=== PATIENT | male | born 1960 | race Caucasian/White ===

== ENCOUNTER 2017-04-07 11:25 | Emergency (ER) | payer BC ==
[2017-04-07 11:41] VITALS: BP 120/77
--- NOTE | 2017-04-07 11:42 | UC ---
Back Pain HPI - HPI Summary HPI Summary: sits alot for work, always has low back pain, tried to life something heavy has right sided SI joint pain. - History of Current Complaint Stated Complaint: BACK PAIN Time Seen by Provider: 04/07/17 11:37 Hx Obtained From: Patient Onset/Duration: Sudden Onset, Lasting Days Timing: Lasting Days Severity Initially: Moderate Severity Currently: Moderate Character: Dull, Spasmodic, Stiffness Aggravating Factor(s): Movement Alleviating Factor(s): Nothing - Allergies/Home Medications Allergies/Adverse Reactions: Allergies Allergy/AdvReac Type Severity Reaction Status Date / Time No Known Allergies Allergy Verified 04/07/17 11:33 Home Medications: Home Medications Aspirin Low Dose CHEW TAB* [Aspirin Low Dose TAB*] 81 mg PO DAILY 04/07/17 [ History Confirmed 04/07/17] Back And Body, Pain Med, ?Name 3 PRN 04/07/17 [History] Lisinopril/HCTZ (NF) [Zestoretic (NF)] 1 tab PO DAILY 04/07/17 [ History Confirmed 04/07/17] PMH/Surg Hx/FS Hx/Imm Hx Previously Healthy: Yes - Surgical History Surgical History: Yes Surgery Procedure, Year, and Place: TESTICLE REMOVED. CHOLECYSTECTOMY. APPY. vasectomy - Family History Known Family History: Positive: Hypertension - Social History Alcohol Use: Other Substance Use Type: None Smoking Status (MU): Never Smoked Tobacco Review of Systems Constitutional: Negative Skin: Negative Eyes: Negative ENT: Negative Respiratory: Negative Cardiovascular: Negative Gastrointestinal: Negative Genitourinary: Negative Motor: Negative Neurovascular: Negative Musculoskeletal: Arthralgia, Decreased ROM, Myalgia Neurological: Negative Psychological: Negative Is Patient Immunocompromised?: No All Other Systems Reviewed And Are Negative: Yes Physical Exam Triage Information Reviewed: Yes Appearance: Well-Appearing, Well-Nourished, Pain Distress Vital Signs Reviewed: Yes Eye Exam: Normal ENT Exam: Normal Dental Exam: Normal Neck exam: Normal Respiratory Exam: Normal Cardiovascular Exam: Normal Abdominal Exam: Normal Bowel Sounds: Positive: Present Musculoskeletal: Positive: Strength Intact, ROM Limited @ - in flex and ext of lumbar spine Neurological Exam: Normal Neurological: Positive: Alert, Muscle Tone Normal Psychological Exam: Normal Skin Exam: Normal Back Pain Course/Dx - Course Course Of Treatment: hx obtained, exam performed ,meds reviewed, treated for low back spasm and pain - Differential Dx/Diagnosis Differential Diagnosis/HQI/PQRI: Herniated Disc, Strain, Sprain Provider Diagnoses: lumbar spasm. sacroillitis Discharge - Discharge Plan Condition: Stable Disposition: HOME Prescriptions: Cyclobenzaprine TAB* [Flexeril 10 MG TAB*] 10 mg PO BID #14 tab Patient Education Materials: Muscle Strain (ED) Referrals: Alex Prasad MD [Primary Care Provider] - Additional Instructions: 1. Use the Flexeril as prescribed. 2. FOr pain relief use the combination of Ibufprofen 400 mg and tylenol 500- 1000 mg every hours for pain managment 3. Heat the back and stretch multiple times a day to help relieve the low back tension. 4. FOllow up as needed.
== END 2017-04-07 11:50 | disposition home or self-care (01) ==
LOC: UCCORT 11:25
DX: M62.830 Muscle spasm of back (principal); M46.1 Sacroiliitis, not elsewhere classified; Z79.82 Long term (current) use of aspirin
CPT/HCPCS: 99212; G0463

== ENCOUNTER 2017-06-29 18:55 | Emergency (ER) | payer BC ==
[2017-06-29 20:21] VITALS: BP 129/77
[2017-06-29] MEDS ORDERED: Fluorescein Sodium TOPICAL* 1 MG TEST OPHTHALMIC ONE (23:19)
[2017-06-29] MEDS ORDERED: Fluorescein Sod TOPICAL 0.6* 0.6 MG TEST OPHTHALMIC ONE (23:21)
[2017-06-29] MEDS ORDERED: Polymyx/Trimethoprim OPTH* 10 ML BTL LEFT EYE ONE (23:31)
--- NOTE | 2017-06-29 23:43 | UC ---
Eye Complaint HPI - HPI Summary HPI Summary: 57 yo male with FB sensation left lower lid x 2 days eye red and tearing no photphobia no pain is irritated he has made multiple attempt to flush eye and had been everting his lower lid and rubbing it with a tissue - History of Current Complaint Chief Complaint: UCEye Stated Complaint: L EYE COMPLAINT Time Seen by Provider: 06/29/17 23:02 Hx Obtained From: Patient Onset/Duration: Gradual Onset, Lasting Days Timing: Constant Severity Initially: Mild Severity Currently: Moderate Pain Intensity: 6 Pain Scale Used: 0-10 Numeric Location of Injury: Eye Lid (lower) Character: Foreign Body Sensation Aggravating Factor(s): Nothing Alleviating Factor(s): Nothing Associated Signs And Symptoms: Positive: Drainage (Clear) Eyes: 1 - (+) flourescein staining defect - Allergies/Home Medications Allergies/Adverse Reactions: Allergies Allergy/AdvReac Type Severity Reaction Status Date / Time No Known Allergies Allergy Verified 06/29/17 20:10 PMH/Surg Hx/FS Hx/Imm Hx Previously Healthy: Yes Cardiovascular History: Hypertension - Surgical History Surgical History: Yes Surgery Procedure, Year, and Place: TESTICLE REMOVED. CHOLECYSTECTOMY. APPY. vasectomy - Family History Known Family History: Positive: Hypertension - Social History Alcohol Use: Rare Substance Use Type: None Smoking Status (MU): Never Smoked Tobacco Review of Systems Constitutional: Negative Skin: Negative Eyes: Eye Redness ENT: Negative Respiratory: Negative Cardiovascular: Negative Gastrointestinal: Negative Genitourinary: Negative Motor: Negative Neurovascular: Negative Musculoskeletal: Negative Neurological: Negative Psychological: Negative Is Patient Immunocompromised?: No All Other Systems Reviewed And Are Negative: Yes Physical Exam Triage Information Reviewed: Yes Appearance: Well-Appearing, No Pain Distress, Well-Nourished Vital Signs: Initial Vital Signs Temp 98.4 F 06/29/17 20:11 Pulse 80 06/29/17 20:11 Resp 16 06/29/17 20:11 BP 129/77 06/29/17 20:11 Pulse Ox 99 06/29/17 20:11 Vital Signs Reviewed: Yes Eyes: Positive: Conjunctiva Inflamed - Left ENT: Positive: Hearing grossly normal. Negative: Nasal congestion, Nasal drainage, Trismus, Muffled voice, Hoarse voice Neck: Positive: Supple Respiratory: Positive: No respiratory distress, No accessory muscle use Cardiovascular: Positive: RRR Musculoskeletal: Positive: ROM Intact, No Edema Neurological: Positive: Alert Psychological Exam: Normal Skin Exam: Normal Eye Complaint Course/Dx - Differential Dx/Diagnosis Provider Diagnoses: left eye pain. scleral abrasion. no fb noted Discharge - Discharge Plan Condition: Stable Disposition: HOME Patient Education Materials: Eye Pain (ED) Referrals: Lee Lamas MD [Medical Doctor] - 2 Days (if not better) Rubi Duncan MD [Medical Doctor] - 2 Days Additional Instructions: I see a small abrasion on the white of your left eye under your lower lid I saw no foreign body if not better by Tuesday AM I suggest you see an eye doctor tylenol or advil for pain recheck for new or worsening symptoms use prescription drops as directed I also suggest you use ZADITOR EYE DROPS (OTC)
== END 2017-06-29 23:51 | disposition home or self-care (01) ==
LOC: UCCORT 18:55
DX: H57.12 Ocular pain, left eye (principal); S05.8X2A Other injuries of left eye and orbit, initial encounter; X58.XXXA Exposure to other specified factors, initial encounter; Y93.9 Activity, unspecified; Y92.9 Unspecified place or not applicable
CPT/HCPCS: 99213; A9270-GY; G0463

== ENCOUNTER 2018-04-05 07:17 | Emergency (ER) | payer BC ==
[2018-04-05 07:28] VITALS: BP 142/74
--- NOTE | 2018-04-05 07:48 | UC ---
Abdominal Pain Male HPI - HPI Summary HPI Summary: 57-year-old male comes in to clinic today with a chief complaint of intermittent right abdominal pain. Pain started about 5 days ago. He's eating well and drinking well normal bowels normal urine. Pain is intermittent. It's brought on with certain movements. No pain at rest. When patient pushes on the area he can find the area of tenderness just right above the iliac crest on the right side. He's tried some [id number] topicals to help with the pain but they have not been helping. No rash no fevers. he's had his gallbladder out at his appendix out years ago. No vomiting he does not feel bloated. Reports a family history of various abdominal cancers. - History of Current Complaint Chief Complaint: UCAbdominalPain Stated Complaint: RIGHT SIDED PAIN - RIB AREA Time Seen by Provider: 04/05/18 07:30 Pain Intensity: 0 - Allergies/Home Medications Allergies/Adverse Reactions: Allergies Allergy/AdvReac Type Severity Reaction Status Date / Time No Known Allergies Allergy Verified 04/05/18 07:23 PMH/Surg Hx/FS Hx/Imm Hx Cardiovascular History: Hypertension - Surgical History Surgical History: Yes Surgery Procedure, Year, and Place: TESTICLE REMOVED. CHOLECYSTECTOMY. APPY. vasectomy - Family History Known Family History: Positive: Hypertension, Other - Various abdominal cancers - Social History Alcohol Use: Rare Substance Use Type: None Smoking Status (MU): Never Smoked Tobacco Review of Systems All Other Systems Reviewed And Are Negative: Yes Constitutional: Positive: Negative Skin: Positive: Negative Eyes: Positive: Negative ENT: Positive: Negative Respiratory: Positive: Negative Cardiovascular: Positive: Negative Gastrointestinal: Positive: Abdominal Pain. Negative: Vomiting, Diarrhea, Nausea Genitourinary: Positive: Negative, Other - Denies testicular pain. Negative: Dysuria, Hematuria, Frequency, Urgency Motor: Positive: Negative Neurovascular: Positive: Negative Musculoskeletal: Positive: Negative Neurological: Positive: Negative Psychological: Positive: Negative Is Patient Immunocompromised?: No Physical Exam Triage Information Reviewed: Yes Appearance: Well-Appearing, No Pain Distress, Well-Nourished Vital Signs: Initial Vital Signs Temp 98.1 F 04/05/18 07:24 Pulse 93 04/05/18 07:24 Resp 16 04/05/18 07:24 BP 142/74 04/05/18 07:24 Pulse Ox 98 04/05/18 07:24 Eye Exam: Normal Neck exam: Normal Neck: Positive: Supple Respiratory Exam: Normal Respiratory: Positive: Lungs clear, Normal breath sounds, No respiratory distress Cardiovascular Exam: Normal Cardiovascular: Positive: RRR Abdomen Description: Positive: Soft, Other: - There is tenderness to palpation on the right side of the abdomen just superior to the iliac crest. No rebound. No rash.. Negative: CVA Tenderness (R), CVA Tenderness (L), Distended, Guarding Bowel Sounds: Positive: Present Musculoskeletal Exam: Normal Musculoskeletal: Positive: Strength Intact, ROM Intact Neurological Exam: Normal Neurological: Positive: Alert, Muscle Tone Normal Psychological Exam: Normal Psychological: Positive: Age Appropriate Behavior Skin Exam: Normal Abd Pain Male Course/Dx - Course Course Of Treatment: Order Information: CT ABD/PEL W/O. Accession Number: [id number]. CPT: 15374. Indication: Intermittent abdominal pain. CT of the abdomen and pelvis was performed without oral or IV contrast administration. Comparison is made with previous exam dated May 02, 2006. Lack of oral and IV. contrast limits evaluation. Lung bases demonstrate no pleural fluid, nodules or masses. Heart is of normal size. without evidence of pericardial effusion. Liver is normal in size. No focal lesions or intrahepatic duct dilatation is noted. Patient status post cholecystectomy. Pancreas demonstrates no mass or pancreatic duct. dilatation. The spleen is normal in size. Accessory splenule is identified. No adrenal masses are noted. The kidneys demonstrate no hydronephrosis. No retroperitoneal. adenopathy is noted. Small bowel demonstrates no abnormal dilatation. The colon is filled. with stool. Diverticulosis of the sigmoid colon without definite evidence of. diverticulitis. Urinary bladder and prostate are unremarkable. Left inguinal hernia are noted. Small lymph nodes are noted. The bony structures demonstrates degenerative changes of the lumbar spine. Aorta demonstrates no evidence of aortic aneurysm. Iliac arteries are unremarkable. There appears to be a left-sided inguinal hernia which is of the indirect type. This. contains omentum. This was present on previous exams well. IMPRESSION: No obstructive uropathy is noted. Left inguinal hernia containing omentum. This is of the indirect type. This is unchanged. from May 02, 2006. . <Electronically signed by Nell Brink MD in [place]> 04/05/18 0803. I discussed the CT report and the urinalysis with the patient. No sign of kidney stone on the CT. With the pain being intermittent and a normal CT most likely cause is musculoskeletal pain. My plan is to get some lab work and have the patient follow-up his primary care doctor if he gets worse he said emergency department. Patient declined lab work. We'll treat with ibuprofen and Flexeril as needed. Patient is aware that he needs to go the emergency department if he gets worse with fever or pain or any other concerns. - Differential Dx/Clinical Impression Provider Diagnoses: ABDOMINAL PAIN, RIGHT Discharge - Sign-Out/Discharge Documenting (check all that apply): Patient Departure All imaging exams completed and their final reports reviewed: Yes - Discharge Plan Condition: Stable Disposition: HOME Prescriptions: Cyclobenzaprine TAB* [Flexeril 10 MG TAB*] 10 mg PO TID PRN #15 tab MDD 3 PRN Reason: Pain Patient Education Materials: Acute Abdominal Pain (ED) Referrals: [facility] [Outside] Additional Instructions: FOLLOW UP WITH YOUR DOCTOR. GO TO THE EMERGENCY DEPARTMENT FOR ANY WORSENING OF YOUR CONDITION; PAIN, FEVER , VOMITING, YOU FEEL ILL OR QUESTIONS OR CONCERNS. - Billing Disposition and Condition Condition: STABLE Disposition: Home
== END 2018-04-05 08:46 | disposition home or self-care (01) ==
LOC: UCCORT 07:17
DX: R10.9 Unspecified abdominal pain (principal); I10 Essential (primary) hypertension; Z80.0 Family history of malignant neoplasm of digestive organs
CPT/HCPCS: 74176; 81003; 99212; G0463